=== PATIENT | male | born 1970 | race Caucasian/White ===

== ENCOUNTER 2022-05-07 14:14 | Emergency (ER) | payer OTHER ==
[~2022-05-07] VITALS: Ht 177.8 cm; Wt 167.7 kg
[2022-05-07 14:52] LABS: BASO # 0.02 K/mm3 (0.02-0.10); EOS # 0.07 K/mm3 (0.04-0.40); EOS % 0.5 % (0.0-4.0); HEMATOCRIT 36.6 % (42.0-52.0); HEMOGLOBIN 11.8 g/dL (13.5-18.0); LYMPH# 0.71 K/mm3 (1.50-4.00); MEAN CELL VOLUME 92 fl (78-100); MEAN CORPUSCULAR HEMOGLOBIN 30 pg (27-31); MEAN CORPUSCULAR HGB CONC 32 g/dL (33-37); MEAN PLATELET VOLUME 9.6 fl (7.4-10.4); MONO # 0.84 K/mm3 (0.20-0.80); NEU # 11.32 K/mm3 (1.40-6.50); PLATELET COUNT 275 K/mm3 (130-400); RED BLOOD COUNT 3.96 M/mm3 (4.20-5.60); RED CELL DISTRIBUTION WIDTH 14.4 % (11.5-14.5)
[2022-05-07 15:10] LABS: ALBUMIN 3.9 g/dL (3.5-5.0); POTASSIUM 3.7 mmol/L (3.5-5.1)
[2022-05-07 15:11] LABS: CALCIUM 9.1 mg/dL (8.3-10.5)
[2022-05-07 15:12] LABS: TOTAL PROTEIN 7.5 g/dL (6.4-8.3)
[2022-05-07 15:14] LABS: TOTAL BILIRUBIN 0.6 mg/dL (0.2-1.2)
[2022-05-07] MEDS ORDERED: FLOMAX0.4 MG PO (15:45)
[2022-05-07] MEDS ORDERED: CYCLOBENZAPRINE10 M1 PO (15:45)
[2022-05-07 16:33] VITALS: BP 175/85
== END 2022-05-07 16:34 | disposition home or self-care (01) ==
LOC: ED 14:14
PROVIDERS: Family Medicine
DX: N13.2 Hydronephrosis with renal and ureteral calculous obstruction (principal); E66.9 Obesity, unspecified; Z68.43 Body mass index [BMI] 50.0-59.9, adult; Z79.82 Long term (current) use of aspirin; V89.2XXA Person injured in unspecified motor-vehicle accident, traffic, initial encounter; Y92.410 Unspecified street and highway as the place of occurrence of the external cause
CPT/HCPCS: Q9967